=== PATIENT | male | born 1960 | race African-American/Black ===

== ENCOUNTER 2016-06-21 18:42 | Emergency (ER) | payer MEDICAID ==
[~2016-06-21] VITALS: Ht 182.9 cm; Wt 83.0 kg
[~2016-06-21 18:42] MED LIST: ARIP30TA3 PO; HYDR25TA PO; HYDR50CA PO; MIRT45TA PO; PHEN100C4 PO
[2016-06-21] MEDS ORDERED: LIDOCAINE HCL 1% 20ML VIAL (Pyxis) INJ MC ONE ×2 (19:45→21:30)
[2016-06-21] MEDS ORDERED: BACITRACIN ZINC OINT UDPKT TOP ONE (19:45)
[2016-06-21] MEDS ORDERED: KETOROLAC 30MG/ML VIAL IM ONE (19:45)
[2016-06-21] MEDS ORDERED: LIDOCAINE HCL/EPINEPHRINE 1%-EPI 1:100,000 20 ML VIAL MC ONE (19:45)
[2016-06-21] MEDS ORDERED: LIDOCAINE HCL 1%/EPI 1:200,000 30 ML VIAL IJ SCH (20:30)
[2016-06-21] MEDS ORDERED: CEFTRIAXONE SODIUM 1 G/VIAL IM ONE (21:30)
[2016-06-21 22:35] VITALS: BP 149/93
== END 2016-06-21 22:56 | disposition home or self-care (01) ==
LOC: ER 20:06
DX: S51.812A Laceration without foreign body of left forearm, initial encounter (principal); S61.214A Laceration without foreign body of right ring finger without damage to nail, initial encounter; I10 Essential (primary) hypertension; R56.9 Unspecified convulsions; Z79.899 Other long term (current) drug therapy; Y08.89XA Assault by other specified means, initial encounter; Y93.89 Activity, other specified; Y99.8 Other external cause status; Y92.89 Other specified places as the place of occurrence of the external cause
CPT/HCPCS: 12004; 73090; 73130; 96372; 99284; J0696; J1885; J3490; X7700; Z7610

== ENCOUNTER 2016-11-08 12:10 | Emergency (ER) | payer MEDICAID ==
[~2016-11-08] VITALS: Ht 180.3 cm; Wt 84.0 kg
[~2016-11-08 12:10] MED LIST changes: +ARIP30TA2 PO; -ARIP30TA3 PO
[2016-11-08 12:56] VITALS: BP 161/95
== END 2016-11-08 17:07 | disposition left against medical advice (07) ==
LOC: ER 12:10
DX: Z53.21 Procedure and treatment not carried out due to patient leaving prior to being seen by health care provider (principal); I10 Essential (primary) hypertension; R56.9 Unspecified convulsions; F17.210 Nicotine dependence, cigarettes, uncomplicated

== ENCOUNTER 2016-11-08 18:14 | Inpatient (IN) | payer MEDICAID, OTHER ==
[~2016-11-08] VITALS: Ht 180.3 cm; Wt 83.9 kg
[2016-11-08] MEDS ORDERED: VANCOMYCIN 1 G PREMIX 200 ML IV SCH (19:30)
[2016-11-08] MEDS ORDERED: LIDOCAINE HCL 1% 20ML VIAL (Pyxis) INJ INFIL ONE (19:30)
[2016-11-08] MEDS ORDERED: MORPHINE SULFATE 4 MG/ML CPJ (NOT FOR IM USE) IV ONE ×2 (19:30→23:15)
[2016-11-08] MEDS ORDERED: PIPERACILLIN/TAZOBACTAM 3.375GM/50ML PREMIX IV ONE (22:00)
[2016-11-08] MEDS ORDERED: PIPERACILLIN/TAZ 3.375G PREMIX 50 ML IV NR (22:15)
[2016-11-08 23:07] LABS: BASOPHILS % 0.3 % (0.0-2.0); EOSINOPHILS % 1.5 % (0.0-5.0); HEMATOCRIT. 39.6 % (42.0-52.0); HEMOGLOBIN. 13.4 g/dL (14.0-18.0); LYMPHOCYTES % 12.9 % (20.0-50.0); MEAN CORPUSCULAR HEMOGLOBIN 29.5 pg (28.0-32.0); MEAN CORPUSCULAR VOLUME 87.2 fL (80.0-94.0); MEAN PLATELET VOLUME 7.8 fl (7.4-10.4); MONOCYTES % 4.9 % (2.0-8.0); NEUTROPHILS % 80.4 % (40.0-76.0); PLATELET 280 x1000/uL (130-400); RED BLOOD CELL COUNT 4.55 mill/uL (4.7-6.1)
[2016-11-08 23:08] LABS: CHLORIDE 103 mEq/L (98-107)
[2016-11-08 23:14] LABS: CARBON DIOXIDE 27 mEq/L (21-32)
[2016-11-09 04:00] VITALS: BP 154/98
[2016-11-09] MEDS ORDERED: MORPHINE SULFATE 4 MG/ML CPJ (NOT FOR IM USE) IV PRN (05:30)
[2016-11-09] MEDS ORDERED: HYDROXYZINE 25 MG/ML IM PRN (05:45)
[2016-11-09] MEDS ORDERED: PIPERACILLIN/TAZ 3.375G PREMIX 50 ML IV SCH (07:30)
[2016-11-09 08:00] VITALS: BP 128/88
[2016-11-09] MEDS: ARIPIPRAZOLE 15MG TABLET PO SCH (08:13)
[2016-11-09] MEDS: HYDROCHLOROTHIAZIDE 25MG TABLET PO SCH (08:13)
[2016-11-09 09:56] LABS: CARBON DIOXIDE 30 mEq/L (21-32); CHLORIDE 102 mEq/L (98-107)
[2016-11-09] MEDS ORDERED: ACETAMINOPHEN 650MG/20.3ML UDC PO PRN (10:30)
[2016-11-09] MEDS: PIPERACILLIN/TAZ 3.375G PREMIX 50 ML IV SCH ×3 (11:39→22:21)
[2016-11-09 12:00] VITALS: BP 128/78
[2016-11-09] MEDS: VANCOMYCIN 1 G PREMIX 200 ML IV SCH ×2 (12:57→20:24)
[2016-11-09 16:00] VITALS: BP 134/83
[2016-11-09 20:00] VITALS: BP 122/78
[2016-11-09] MEDS ORDERED: PHENYTOIN SODIUM EXTENDED 100MG CAPSULE PO SCH (21:00)
[2016-11-10] VITALS: BP 147/88
[2016-11-10 04:00] VITALS: BP 142/87
[2016-11-10] MEDS: PIPERACILLIN/TAZ 3.375G PREMIX 50 ML IV SCH (05:03)
[2016-11-10 08:00] VITALS: BP 126/80
[2016-11-10] MEDS: VANCOMYCIN 1 G PREMIX 200 ML IV SCH (08:02)
[2016-11-10] MEDS: ARIPIPRAZOLE 15MG TABLET PO SCH (08:02)
[2016-11-10] MEDS: HYDROCHLOROTHIAZIDE 25MG TABLET PO SCH (08:02)
[2016-11-10] MEDS ORDERED: CLIN300C11 PO (11:59)
[2016-11-10 12:12] VITALS: BP 126/80
== END 2016-11-10 13:06 | disposition home or self-care (01) | DRG 361 ==
LOC: ER 20:17 → 8WST 22:06 → ENRESERV 11-09 01:49
PROVIDERS: ADMIT Internal Medicine; ATTEND Internal Medicine
PROC: 0HBFXZZ Excision of Right Hand Skin, External Approach (ICD-10-PCS; principal; 2016-11-08)
DX: L03.113 Cellulitis of right upper limb (principal); R65.10 Systemic inflammatory response syndrome (SIRS) of non-infectious origin without acute organ dysfunction; I10 Essential (primary) hypertension; G40.909 Epilepsy, unspecified, not intractable, without status epilepticus; F17.210 Nicotine dependence, cigarettes, uncomplicated; Z79.899 Other long term (current) drug therapy
CPT/HCPCS: 10060; 36415; 73130; 80048; 85025; 87040; 87070; 87205; 96365; 96367; 96375; 96376; 99285; J2270; J2543; J3370; J3490; J7030; J7040

== ENCOUNTER 2018-02-11 20:20 | Inpatient (IN) | payer MEDICAID ==
[~2018-02-11] VITALS: Ht 185.4 cm; Wt 83.9 kg
[~2018-02-11 20:20] MED LIST changes: +CLIN300C11 PO
[2018-02-11] MEDS ORDERED: SODIUM CHLORIDE 0.9% 1,000 ML IV ONE (21:46)
[2018-02-11] MEDS ORDERED: LORAZEPAM 2MG/ML CPJ IV ONE (22:00)
[2018-02-11] MEDS ORDERED: NITROGLYCERIN OINT 1GM/INCH UDPKT TD ONE (22:00)
[2018-02-11 23:09] LABS: BASOPHILS % 1.5 % (0.0-2.0); EOSINOPHILS % 4.5 % (0.0-5.0); HEMATOCRIT. 40.8 % (42.0-52.0); HEMOGLOBIN. 13.9 g/dL (14.0-18.0); LYMPHOCYTES % 25.5 % (20.0-50.0); MEAN CORPUSCULAR HEMOGLOBIN 30.6 pg (28.0-32.0); MEAN PLATELET VOLUME 8.4 fl (7.4-10.4); NEUTROPHILS % 59.5 % (40.0-76.0); PLATELET 356 x1000/uL (130-400); RED BLOOD CELL COUNT 4.54 mill/uL (4.7-6.1); RED CELL DISTRIBUTION WIDTH 14.2 % (11.6-14.6)
[2018-02-11 23:10] LABS: CHLORIDE 104 mEq/L (98-107)
[2018-02-11 23:12] LABS: INR 1.1; PROTHROMBIN TIME 10.6 sec (9.1-11.1)
[2018-02-11 23:14] LABS: ETHANOL BLOOD < 10 mg/dL
[2018-02-12] MEDS ORDERED: HYDROCODONE/ACETAMINOPHEN 5/325MG TABLET PO PRN
[2018-02-12] MEDS ORDERED: LORAZEPAM 2MG/ML CPJ IV PRN
[2018-02-12] MEDS ORDERED: DOCUSATE SODIUM 100MG CAPSULE PO PRN
[2018-02-12] MEDS ORDERED: ONDANSETRON HCL 4MG/2ML INJ IV PRN
[2018-02-12] MEDS ORDERED: ACETAMINOPHEN 325MG TABLET PO PRN
[2018-02-12] MEDS ORDERED: IPRATROPIUM/ALBUTEROL 0.5-3(2.5)MG/3ML NEB INH PRN
[2018-02-12] MEDS ORDERED: CLONIDINE 0.1MG TABLET PO PRN
[2018-02-12] MEDS ORDERED: GUAIFENESIN 200MG/10ML SUGAR FREE UDC PO PRN
[2018-02-12] MEDS ORDERED: MAGNESIUM/ALUMINUM HYDROXIDE/SIMETHICONE 30ML UDC PO PRN
[2018-02-12 00:50] LABS: *BARBITURATES SCREEN URINE NEGATIVE (NEGATIVE)
[2018-02-12 00:51] LABS: *AMPHETAMINES SCREEN URINE NEGATIVE (NEGATIVE); *BENZODIAZEPINES SCREEN URINE NEGATIVE (NEGATIVE)
[2018-02-12 00:52] LABS: *COCAINE SCREEN URINE PRESUMTIVE POSITIVE (NEGATIVE); CANNABINOID URINE SCREEN NEGATIVE (NEGATIVE); METHADONE URINE SCREEN NEGATIVE (NEGATIVE); OPIATES URINE SCREEN NEGATIVE (NEGATIVE)
[2018-02-12 00:53] LABS: PHENCYCLIDINE URINE SCREEN NEGATIVE (NEGATIVE)
[2018-02-12 04:50] LABS: BASOPHILS % 0.3 % (0.0-2.0); EOSINOPHILS % 5.1 % (0.0-5.0); HEMATOCRIT. 39.8 % (42.0-52.0); HEMOGLOBIN. 13.5 g/dL (14.0-18.0); MEAN CORPUSCULAR HEMOGLOBIN 30.6 pg (28.0-32.0); MEAN CORPUSCULAR VOLUME 90.3 fL (80.0-94.0); MEAN PLATELET VOLUME 7.4 fl (7.4-10.4); MONOCYTES % 8.6 % (2.0-8.0); PLATELET 344 x1000/uL (130-400); RED BLOOD CELL COUNT 4.41 mill/uL (4.7-6.1); RED CELL DISTRIBUTION WIDTH 14.1 % (11.6-14.6)
[2018-02-12 05:01] LABS: CHLORIDE 107 mEq/L (98-107)
[2018-02-12 05:10] LABS: LDL CHOLESTEROL 78 mg/dL (5-100)
[2018-02-12 05:11] LABS: CREATINE KINASE 229 IU/L (39-308)
[2018-02-12 05:12] LABS: HDL CHOLESTEROL 70 mg/dL (40-59)
[2018-02-12 05:14] LABS: CREATINE KINASE MB FRACTION 2.7 ng/mL (0.5-3.6)
[2018-02-12] MEDS: ASPIRIN 81MG EC TABLET PO SCH (11:15)
[2018-02-12] MEDS: ENOXAPARIN 40MG/0.4ML SYR SUBCUT SCH (11:16)
[2018-02-12] MEDS: AMLODIPINE 10MG TABLET PO SCH (11:16)
[2018-02-12 11:20] VITALS: BP 143/96
[2018-02-12 12:25] VITALS: BP 127/86
[2018-02-12] MEDS ORDERED: INFLUENZA VIRUS VACCINE(AFLURIA) 0.5ML SYR IM ONE (13:00)
[2018-02-12] MEDS: NITROGLYCERIN OINT 1GM/INCH UDPKT TD SCH ×2 (14:22→21:05)
[2018-02-12] MEDS ORDERED: PHENYTOIN SODIUM EXTENDED 100MG CAPSULE PO SCH (15:30)
[2018-02-12] MEDS: PHENYTOIN SODIUM EXTENDED 100MG CAPSULE PO SCH ×3 (16:52→23:08)
[2018-02-12 17:50] LABS: CREATINE KINASE 178 IU/L (39-308)
[2018-02-12 17:51] LABS: CREATINE KINASE MB FRACTION 1.9 ng/mL (0.5-3.6)
[2018-02-12 20:35] VITALS: BP 123/78
[2018-02-12] MEDS: METOPROLOL TARTRATE 25MG TABLET PO SCH (21:05)
[2018-02-13] VITALS (7 sets, daily range): BP systolic 101–127; BP diastolic 63–85
[2018-02-13 06:00] LABS: BASOPHILS % 1.1 % (0.0-2.0); EOSINOPHILS % 4.3 % (0.0-5.0); HEMATOCRIT. 39.6 % (42.0-52.0); HEMOGLOBIN. 13.8 g/dL (14.0-18.0); LYMPHOCYTES % 29.7 % (20.0-50.0); MEAN CORPUSCULAR HEMOGLOBIN 31.6 pg (28.0-32.0); MEAN CORPUSCULAR VOLUME 90.9 fL (80.0-94.0); MEAN PLATELET VOLUME 8.3 fl (7.4-10.4); MONOCYTES % 8.8 % (2.0-8.0); NEUTROPHILS % 56.1 % (40.0-76.0); PLATELET 334 x1000/uL (130-400); RED BLOOD CELL COUNT 4.36 mill/uL (4.7-6.1); RED CELL DISTRIBUTION WIDTH 13.7 % (11.6-14.6)
[2018-02-13] MEDS: NITROGLYCERIN OINT 1GM/INCH UDPKT TD SCH ×2 (06:23→14:00)
[2018-02-13 08:17] LABS: CHLORIDE 103 mEq/L (98-107)
[2018-02-13] MEDS: METOPROLOL TARTRATE 25MG TABLET PO SCH (10:27)
[2018-02-13] MEDS: ENOXAPARIN 40MG/0.4ML SYR SUBCUT SCH (10:28)
[2018-02-13] MEDS: AMLODIPINE 10MG TABLET PO SCH (10:28)
[2018-02-13] MEDS: ASPIRIN 81MG EC TABLET PO SCH (10:28)
[2018-02-13] MEDS ORDERED: LISINOPRIL 5MG TABLET PO SCH (11:30)
[2018-02-13] MEDS ORDERED: LISI-186 PO (18:12)
[2018-02-13] MEDS ORDERED: ASPI-1158 PO (18:12)
[2018-02-13] MEDS ORDERED: COR12 PO (18:12)
[2018-02-13] MEDS ORDERED: CARVEDILOL 12.5MG TABLET PO SCH (21:00)
== END 2018-02-13 21:12 | disposition home or self-care (01) | DRG 48 ==
LOC: ER 20:20 → 6WST 23:36 → EDBEDREQ 23:38 → EDBEDREQTM 23:38 → ENRESERV 02-12 07:06
PROVIDERS: ADMIT Internal Medicine; ATTEND Internal Medicine
DX: G90.8 Other disorders of autonomic nervous system (principal); N17.0 Acute kidney failure with tubular necrosis; I24.9 Acute ischemic heart disease, unspecified; I11.0 Hypertensive heart disease with heart failure; I27.20 Pulmonary hypertension, unspecified; S62.617A Displaced fracture of proximal phalanx of left little finger, initial encounter for closed fracture; I50.22 Chronic systolic (congestive) heart failure; G40.909 Epilepsy, unspecified, not intractable, without status epilepticus; F14.10 Cocaine abuse, uncomplicated; F17.210 Nicotine dependence, cigarettes, uncomplicated; F32.9 Major depressive disorder, single episode, unspecified; F41.9 Anxiety disorder, unspecified; I69.354 Hemiplegia and hemiparesis following cerebral infarction affecting left non-dominant side; I42.9 Cardiomyopathy, unspecified; W18.39XA Other fall on same level, initial encounter; Y93.89 Activity, other specified; Y92.89 Other specified places as the place of occurrence of the external cause; Y99.8 Other external cause status; Z71.51 Drug abuse counseling and surveillance of drug abuser; Z79.899 Other long term (current) drug therapy
CPT/HCPCS: 36415; 70551; 71045; 73130; 80048; 80061; 80185; 80305; 82550; 82553; 83605; 83735; 83880; 84443; 84484; 85379; 90686; 93005; 93306; 93880; 93970; 96374; 97162; 99285; A4565; G0482; J1650; J2060; J7030

== ENCOUNTER 2018-03-09 09:51 | Emergency (ER) | payer MEDICAID ==
[~2018-03-09 09:51] MED LIST changes: +ASPI-1158 PO; -CLIN300C11 PO; +COR12 PO; -HYDR25TA PO; -HYDR50CA PO; +LISI-186 PO; -MIRT45TA PO
== END 2018-03-09 11:20 | disposition left against medical advice (07) ==
LOC: ER 10:47
DX: Z53.21 Procedure and treatment not carried out due to patient leaving prior to being seen by health care provider (principal)

== ENCOUNTER 2018-03-09 12:11 | Emergency (ER) | payer MEDICAID ==
[~2018-03-09] VITALS: Ht 180.3 cm; Wt 84.0 kg
[2018-03-09 12:43] VITALS: BP 153/91
[2018-03-09 13:41] LABS: BASOPHILS % 0.8 % (0.0-2.0); EOSINOPHILS % 1.9 % (0.0-5.0); HEMATOCRIT. 45.7 % (42.0-52.0); HEMOGLOBIN. 15.3 g/dL (14.0-18.0); LYMPHOCYTES % 25.2 % (20.0-50.0); MEAN CORPUSCULAR HEMOGLOBIN 30.7 pg (28.0-32.0); MEAN CORPUSCULAR VOLUME 91.7 fL (80.0-94.0); MEAN PLATELET VOLUME 8.2 fl (7.4-10.4); MONOCYTES % 5.9 % (2.0-8.0); NEUTROPHILS % 66.2 % (40.0-76.0); PLATELET 279 x1000/uL (130-400); RED BLOOD CELL COUNT 4.98 mill/uL (4.7-6.1)
[2018-03-09 13:46] LABS: CHLORIDE 103 mEq/L (98-107)
== END 2018-03-09 14:14 | disposition left against medical advice (07) ==
LOC: ER 12:25
DX: L03.114 Cellulitis of left upper limb (principal)
CPT/HCPCS: 36415; 83605; 99283

== ENCOUNTER 2021-03-03 21:50 | Emergency (ER) | payer OTHER ==
[~2021-03-03 21:50] MED LIST changes: -ASPI-1158 PO; +ASPI-1406 PO; +CITA10TA16 PO; +NITR0.4T49 SL
== END 2021-03-03 22:50 | disposition left against medical advice (07) ==
LOC: ER 21:50
DX: Z53.21 Procedure and treatment not carried out due to patient leaving prior to being seen by health care provider (principal)

== ENCOUNTER 2021-03-04 10:10 | Inpatient (IN) | payer OTHER ==
[~2021-03-04] VITALS: Ht 180.3 cm; Wt 75.5 kg
[2021-03-04 12:27] LABS: HEMATOCRIT. 45.6 % (42.0-52.0); HEMOGLOBIN. 15.3 g/dL (14.0-18.0); MEAN CORPUSCULAR HEMOGLOBIN 30.3 pg (28.0-32.0); MEAN CORPUSCULAR VOLUME 90.2 fL (80.0-94.0); MEAN PLATELET VOLUME 8.3 fl (7.4-10.4); PLATELET 227 x1000/uL (130-400); RED BLOOD CELL COUNT 5.06 mill/uL (4.7-6.1); RED CELL DISTRIBUTION WIDTH 13.4 % (11.6-14.6)
[2021-03-04 12:36] LABS: CHLORIDE 104 mEq/L (98-107)
[2021-03-04 12:57] LABS: PLATELET ESTIMATE NORMAL
[2021-03-04 13:20] LABS: ETHANOL BLOOD < 10 mg/dL
[2021-03-04 15:36] LABS: PHENCYCLIDINE URINE SCREEN NEGATIVE (NEGATIVE)
[2021-03-04 15:37] LABS: *AMPHETAMINES SCREEN URINE NEGATIVE (NEGATIVE); *BARBITURATES SCREEN URINE NEGATIVE (NEGATIVE); *BENZODIAZEPINES SCREEN URINE NEGATIVE (NEGATIVE); *COCAINE SCREEN URINE PRESUMTIVE POSITIVE (NEGATIVE); CANNABINOID URINE SCREEN NEGATIVE (NEGATIVE); METHADONE URINE SCREEN NEGATIVE (NEGATIVE); OPIATES URINE SCREEN NEGATIVE (NEGATIVE)
[2021-03-05] MEDS ORDERED: ONDANSETRON HCL 4MG/2ML INJ IV PRN (09:15)
[2021-03-05] MEDS ORDERED: ACETAMINOPHEN 325MG TABLET PO PRN (09:15)
[2021-03-05 13:43] VITALS: BP 108/70
== END 2021-03-05 14:59 | disposition home or self-care (01) | DRG 137 ==
LOC: ER 10:10 → EDBEDREQ 14:38 → EDBEDREQTM 15:18 → MICUSO 03-05 01:16
PROVIDERS: ADMIT Internal Medicine; ATTEND Internal Medicine
DX: U07.1 COVID-19 (principal); F14.10 Cocaine abuse, uncomplicated; R53.1 Weakness; G40.909 Epilepsy, unspecified, not intractable, without status epilepticus; I10 Essential (primary) hypertension; F17.210 Nicotine dependence, cigarettes, uncomplicated; I25.10 Atherosclerotic heart disease of native coronary artery without angina pectoris; F32.A Depression, unspecified; Z20.822 Contact with and (suspected) exposure to COVID-19; Z86.73 Personal history of transient ischemic attack (TIA), and cerebral infarction without residual deficits; Z71.51 Drug abuse counseling and surveillance of drug abuser; R29.6 Repeated falls
CPT/HCPCS: 36415; 71045; 80053; 80305; 80320; 83880; 84145; 84484; 85025; 87426; 93005; 99285; G0480